=== PATIENT | male | born 1980 | race African-American/Black ===

== ENCOUNTER 2020-04-10 08:04 | Emergency (ER) | payer SELFPAY | END 2020-04-10 08:50 | disposition home or self-care (01) | LOC: ERS 08:04 | DX: M54.12 Radiculopathy, cervical region (principal) | CPT/HCPCS: 99283 ==

== ENCOUNTER 2020-10-03 11:06 | Emergency (ER) | payer OTHER, SELFPAY ==
[2020-10-03] MEDS ORDERED: Ketorolac Tromethamine 30 MG/ML VIAL ONE (13:36)
== END 2020-10-03 14:12 | disposition home or self-care (01) ==
LOC: ERS 11:06
DX: S39.012A Strain of muscle, fascia and tendon of lower back, initial encounter (principal); V43.62XA Car passenger injured in collision with other type car in traffic accident, initial encounter
CPT/HCPCS: 72100; 96372; J1885

== ENCOUNTER 2021-05-07 09:35 | Emergency (ER) | payer SELFPAY | END 2021-05-07 11:30 | disposition home or self-care (01) | LOC: ERS 09:35 | DX: M79.604 Pain in right leg (principal); F17.210 Nicotine dependence, cigarettes, uncomplicated | CPT/HCPCS: 99283 ==

== ENCOUNTER 2022-04-14 17:21 | Emergency (ER) | payer SELFPAY ==
[2022-04-14] MEDS ORDERED: Lidocaine 1% PF 5 ML VIAL ONE ×2 (19:43→20:14)
[2022-04-14] MEDS ORDERED: Boostrix 0.5 ML (Tdap) VIAL (>/=7 yrs of age) ONE (19:43)
[2022-04-14] MEDS ORDERED: Bacitracin 1 PK ONE (21:08)
[2022-04-14] MEDS ORDERED: Ibuprofen 200 MG TAB ONE (21:12)
== END 2022-04-14 21:15 | disposition home or self-care (01) ==
LOC: ERS 17:21
DX: S61.412A Laceration without foreign body of left hand, initial encounter (principal); Z23 Encounter for immunization; W26.9XXA Contact with unspecified sharp object(s), initial encounter
CPT/HCPCS: 12032; 90471; 90715